=== PATIENT | male | born 1970 | race Caucasian/White ===

== ENCOUNTER 2019-05-15 09:58 | Inpatient (IN) | payer BC, OTHER ==
[~2019-05-15] VITALS: Ht 185.4 cm; Wt 108.2 kg
--- NOTE | 2019-05-15 10:40 | NUR ---
THIS IS A 48 YO MALE TRANSFERRED FROM [facility] FOR OVERFLOW FOR A CONFIRMED STROKE WITH MRI. PT ABLE TO MOVE ALL EXTREMITIES W/O DIFFICULTY. SPEECH CLEAR. GAIT STEADY. FACE SYMMETRICAL. PERRLA. SENSATION INTACT IN ALL EXTREMITIES. SEVERE WEAKNESS IN LEFT HAND FROM WRIST DOWN. PT REPORTS SENSATION IS INTACT BUT UNABLE TO MOVE. PT ABLE TO COUGH DEEPLY ON HIS OWN AND PASSED SWALLOW EVAL W/O DIFFICULTY. FAMILY AT BEDSIDE. PT ON CONT BP, CARDIAC AND O2 MONITORS. CALL LIGHT WITHIN REACH. PT AWAITING ERMD EVAL. WILL CONT TO MONITOR PT. Addendum: 05/15/19 at 1043 by REBECA THIS IS A 48 YO MALE TRANSFERRED FROM [facility] FOR OVERFLOW FOR A CONFIRMED STROKE WITH MRI. PT DRANK ONE "DRAM OF WHISKEY" AND TOOK "A COUPLE SLEEPING PILLS" AND "WOKE UP LIKE THIS". UNK TIME OF ONSET - D/T THIS, PT DID NOT RECIEVE TPA AT [facility]. PT ABLE TO MOVE ALL EXTREMITIES W/O DIFFICULTY. SPEECH CLEAR. GAIT STEADY. FACE SYMMETRICAL. PERRLA. SENSATION INTACT IN ALL EXTREMITIES. SEVERE WEAKNESS IN LEFT HAND FROM WRIST DOWN. PT REPORTS SENSATION IS INTACT BUT UNABLE TO MOVE. PT ABLE TO COUGH DEEPLY ON HIS OWN AND PASSED SWALLOW EVAL W/O DIFFICULTY. FAMILY AT BEDSIDE. PT ON CONT BP, CARDIAC AND O2 MONITORS. CALL LIGHT WITHIN REACH. PT AWAITING ERMD EVAL. WILL CONT TO MONITOR PT.
--- NOTE | 2019-05-15 11:05 | NUR ---
ERMD LAW AT BEDSIDE FOR EVAL. PT CURRENTLY RESTING ON GURNEY. NAD NOTED. SKIN PWD. RESP EVEN AND UNLABORED. AO X 4. NO CHANGE IN NEURO STATUS AT THIS TIME. AND SON AT BEDSIDE. PT ON CONT BP, CARDIAC AND O2 MONITORS. CALL LIGHT WITHIN REACH. WILL CONT TO MONITOR PT.
[2019-05-15] MEDS ORDERED: CLOPIDOGREL 300 MG TABLET PO ONE (11:30)
[2019-05-15] MEDS ORDERED: CLOPIDOGREL 75 MG TABLET PO SCH (11:30)
--- NOTE | 2019-05-15 11:59 | NUR ---
REPORT TO AARON HURTADO ON MED/TELE.
[2019-05-15] MEDS ORDERED: LABETALOL 5MG/ML, 20ML IV PRN (12:00)
[2019-05-15] MEDS ORDERED: ONDANSETRON 4 MG TABLET PO PRN (12:00)
[2019-05-15] MEDS ORDERED: OMNIPAQUE 350 MG/ML, 100ML BOTTLE ONE (12:03)
[2019-05-15 12:40] VITALS: BP 128/91
[2019-05-15 15:20] VITALS: BP 126/85
[2019-05-15] MEDS: ACETAMINOPHEN 650 MG/20.3 ML UDC PO PRN ×2 (15:54→21:12)
[2019-05-15 17:10] VITALS: BP 128/92
[2019-05-15 18:44] VITALS: BP 129/84
[2019-05-15] MEDS ORDERED: ATORVASTATIN 40 MG TABLET PO SCH (21:00)
[2019-05-15 21:12] VITALS: BP 137/90
[2019-05-15 23:08] VITALS: BP 121/83
[2019-05-16] VITALS (7 sets, daily range): BP systolic 110–145; BP diastolic 76–91
[2019-05-16 06:20] LABS: BASOPHILS # (AUTO) 0.03 x10^3/uL (0-0.1); BASOPHILS % (AUTO) 0 % (0-1); EOSINOPHILS # (AUTO) 0.19 x10^3/uL (0-0.4); EOSINOPHILS % (AUTO) 2 % (1-7); LYMPHOCYTES # (AUTO) 2.58 x10^3/uL (1-3.4); LYMPHOCYTES % (AUTO) 30 % (22-44); MD NO; MEAN CORPUSCULAR HEMOGLOBIN 30.4 pg (27.5-34.5); MEAN CORPUSCULAR HGB CONC 34.1 g/dL (33.2-36.2); MEAN PLATELET VOLUME 9.1 fL (7.4-10.4); MONOCYTES # (AUTO) 0.63 x10^3/uL (0.2-0.8); MONOCYTES % (AUTO) 7 % (2-9); NEUTROPHILS # (AUTO) 5.15 x10^3/uL (1.8-6.8); NEUTROPHILS % (AUTO) 60 % (42-75); PLATELET COUNT 209 x10^3/uL (130-400); RED BLOOD COUNT 4.86 x10^6/uL (4.38-5.82); RED CELL DISTRIBUTION WIDTH 13.3 % (9.4-14.8)
[2019-05-16 06:35] LABS: CHLORIDE 108 mmol/L (98-107)
[2019-05-16 07:29] LABS: ALANINE AMINOTRANSFERASE 27 U/L (12-78); ALBUMIN 3.4 g/dL (3.4-5.0); ALKALINE PHOSPHATASE 68 U/L (45-117); ANION GAP 10 mmol/L (5-15); BILIRUBIN,TOTAL 0.7 mg/dL (0.2-1.0); CALCIUM 9.5 mg/dL (8.5-10.1); CHOL/HDL RATIO 6.1; CHOLESTEROL, TOTAL 200 mg/dL (140-239); CREATININE 1.24 mg/dL (0.7-1.3); HDL CHOL % 17 % (26-37); HDL CHOLESTEROL (DIRECT) 33 mg/dL (40-60); LDL CHOLESTEROL,CALCULATED 123 mg/dL (54-169); LDL/HDL RATIO 3.7 (0.5-3.0); TOTAL PROTEIN 7.4 g/dL (6.4-8.2); TRIGLYCERIDES 221 mg/dL (50-200); VLDL CHOLESTEROL 44 mg/dL (0-25)
[2019-05-16] MEDS: ACETAMINOPHEN 650 MG/20.3 ML UDC PO PRN (08:46)
[2019-05-16] MEDS ORDERED: ASPIRIN 81 MG TABLET CHEW PO/NG SCH (09:00)
[2019-05-16 11:53] LABS: HCT (SEDRATE) 45.6 % (39.2-51.8)
[2019-05-16] MEDS ORDERED: DEXAMETHASONE 4 MG/ML, 1ML IVPush ONE (12:00)
[2019-05-16] MEDS ORDERED: DIPHENHYDRAMINE 50 MG/ML, 1ML IVPush ONE (12:00)
[2019-05-16] MEDS ORDERED: PROCHLORPERAZINE 5 MG/ML, 2ML IVPush ONE (12:00)
[2019-05-16] MEDS: CLOPIDOGREL 75 MG TABLET PO SCH (16:12)
[2019-05-16] MEDS ORDERED: ENOXAPARIN 40 MG/0.4 ML SQ SCH (18:30)
[2019-05-16] MEDS ORDERED: ATORVASTATIN 80 MG TABLET PO SCH (21:00)
[2019-05-17] MEDS ORDERED: CALCIUM CARBONATE 500 MG TAB.CHEW PO PRN (00:30)
[2019-05-17 05:49] VITALS: BP 128/77
[2019-05-17 06:18] LABS: BASOPHILS # (AUTO) 0.01 x10^3/uL (0-0.1); BASOPHILS % (AUTO) 0 % (0-1); EOSINOPHILS # (AUTO) 0.01 x10^3/uL (0-0.4); EOSINOPHILS % (AUTO) 0 % (1-7); LYMPHOCYTES # (AUTO) 1.48 x10^3/uL (1-3.4); LYMPHOCYTES % (AUTO) 9 % (22-44); MD NO; MEAN CORPUSCULAR HEMOGLOBIN 30.3 pg (27.5-34.5); MEAN CORPUSCULAR HGB CONC 34.2 g/dL (33.2-36.2); MEAN CORPUSCULAR VOLUME 88.6 fL (81-97); MEAN PLATELET VOLUME 8.8 fL (7.4-10.4); MONOCYTES # (AUTO) 0.63 x10^3/uL (0.2-0.8); MONOCYTES % (AUTO) 4 % (2-9); NEUTROPHILS # (AUTO) 13.86 x10^3/uL (1.8-6.8); NEUTROPHILS % (AUTO) 87 % (42-75); PLATELET COUNT 239 x10^3/uL (130-400); RED BLOOD COUNT 4.83 x10^6/uL (4.38-5.82); RED CELL DISTRIBUTION WIDTH 13.3 % (9.4-14.8)
[2019-05-17 06:25] LABS: ANION GAP 8 mmol/L (5-15); CALCIUM 8.9 mg/dL (8.5-10.1); CHLORIDE 109 mmol/L (98-107)
[2019-05-17 06:26] LABS: CREATININE 1.22 mg/dL (0.7-1.3)
[2019-05-17] MEDS: CLOPIDOGREL 75 MG TABLET PO SCH (09:18)
[2019-05-17] MEDS ORDERED: ATOR-2 PO (13:13)
[2019-05-17] MEDS ORDERED: CLOP75TA PO (13:13)
[2019-05-17 14:25] VITALS: BP 145/88
== END 2019-05-17 16:49 | disposition home or self-care (01) | DRG 65 ==
LOC: ED 11:21 → EDIP 11:37 → 4EST 12:19
PROVIDERS: ADMIT Internal Medicine; ATTEND Internal Medicine
DX: I63.9 Cerebral infarction, unspecified (principal); Q21.1 Atrial septal defect; R47.81 Slurred speech; F17.290 Nicotine dependence, other tobacco product, uncomplicated; R73.9 Hyperglycemia, unspecified; I10 Essential (primary) hypertension; E78.5 Hyperlipidemia, unspecified; Z88.6 Allergy status to analgesic agent; Z72.89 Other problems related to lifestyle; Z83.3 Family history of diabetes mellitus; Z80.42 Family history of malignant neoplasm of prostate; Z82.49 Family history of ischemic heart disease and other diseases of the circulatory system; Z79.899 Other long term (current) drug therapy
CPT/HCPCS: 36415; 70496; 70498; 80048; 80053; 80061; 83036; 85025; 85651; 86140; 93005; 93306; 99285; G0378; J1100; J1650; Q9967; J0780; J1200